=== PATIENT | male | born 1960 | race Caucasian/White ===

== ENCOUNTER 2017-06-05 18:21 | Emergency (ER) | payer MEDICARE, OTHER ==
[~2017-06-05] VITALS: Ht 188 cm; Wt 100.0 kg
[~2017-06-05 18:21] MED LIST: CYCL-1 PO; CYCL-117 PO; CYCL-120 PO; CYCL-394 PO; IBUP-1051 PO; NO HOME MEDS; NORCO10T PO
[2017-06-05] MEDS ORDERED: albuterol 2.5 MG/3 ML nebule NEB ONE (18:30)
[2017-06-05 19:13] LABS: BASOPHILS # (AUTO) 0.1 X10'3 (0-0.2); BASOPHILS % (AUTO) 0.4 % (0-1); EOSINOPHILS # (AUTO) 0.2 X10'3 (0-0.9); HEMATOCRIT 37.8 % (42.0-52.0); HEMOGLOBIN 13.2 g/dl (14.0-17.9); LYMPHOCYTES # (AUTO) 5.2 X10'3 (1.1-4.8); MEAN CORPUSCULAR HEMOGLOBIN 30.1 PG (27.0-31.0); MEAN CORPUSCULAR HGB CONC 35.1 % (33.0-36.5); MEAN PLATELET VOLUME 8.2 FL (7.4-10.4); MONOCYTES # (AUTO) 1.6 X10'3 (0-0.9); MONOCYTES % (AUTO) 8.9 % (2-12); NEUTROPHILS # (AUTO) 10.4 X10'3 (1.8-7.7); NEUTROPHILS % (AUTO) 59.7 % (42-75); PLATELET COUNT 213 X10'3 (140-440); RED BLOOD COUNT 4.39 X10'6 (4.70-6.10); RED CELL DISTRIBUTION WIDTH 13.4 % (11.5-14.5); WHITE BLOOD COUNT 17.5 X10'3 (4.5-11.0)
[2017-06-05 19:19] VITALS: BP 130/90
[2017-06-05 19:39] LABS: ALANINE AMINOTRANSFERASE 89 U/L (12-78); ALBUMIN 3.6 G/DL (3.4-5.0); ALBUMIN/GLOBULIN RATIO 0.7 (1.1-1.5); ALKALINE PHOSPHATASE 53 IU/L (46-116); ANION GAP 11 (8-16); ASPARTATE AMINO TRANSFERASE 63 U/L (10-37); BILIRUBIN,TOTAL 0.9 MG/DL (0.1-1.0); BLOOD UREA NITROGEN 13 MG/DL (7-18); BUN/CREATININE RATIO 13.3 (5.4-32.0); CALCIUM 9.2 MG/DL (8.5-10.1); CHLORIDE 96 MMOL/L (99-107); CREATININE 0.98 MG/DL (0.60-1.10); GLUCOSE 90 MG/DL (70-104); POTASSIUM 3.5 MMOL/L (3.5-5.1); SODIUM 133 MMOL/L (135-145); TOTAL CARBON DIOXIDE 26.3 MMOL/L (24-32); TOTAL PROTEIN 8.7 G/DL (6.4-8.2); eGFR 79 ML/MIN
[2017-06-05] MEDS ORDERED: GUAI600T45 PO (20:52)
[2017-06-05] MEDS ORDERED: ALBU8.5H8 INH (20:52)
[2017-06-05] MEDS ORDERED: AZIT-57 PO (20:52)
[2017-06-06] MEDS ORDERED: GUAI473S11 PO (02:52)
== END 2017-06-05 21:37 | disposition home or self-care (01) ==
LOC: ER 18:22
DX: J20.9 Acute bronchitis, unspecified (principal); B34.9 Viral infection, unspecified; D72.829 Elevated white blood cell count, unspecified; G89.29 Other chronic pain; Z90.49 Acquired absence of other specified parts of digestive tract; Z60.2 Problems related to living alone; Z79.899 Other long term (current) drug therapy
CPT/HCPCS: 36415; 71045; 80053; 83605; 83880; 84484; 85025; 87040; 87502; 87503; 93005; 94640; 94760; 99285

== ENCOUNTER 2018-11-04 20:51 | Emergency (ER) | payer MEDICARE ==
[~2018-11-04] VITALS: Ht 182.9 cm; Wt 103.0 kg
[~2018-11-04 20:51] MED LIST changes: +ALBU8.5H8 INH; +GUAI600T45 PO
--- NOTE | 2018-11-04 23:18 | NUR ---
pt given cup of soda and requested to try and take a few sips at a time. Pt reports it is painful. Able to manage his secretions. Pt has had the fish bone stuck for aprox 2 hrs.
[2018-11-05 00:23] VITALS: BP 140/111
== END 2018-11-05 00:38 | disposition home or self-care (01) ==
LOC: ER 20:53
DX: S00.552A Superficial foreign body of oral cavity, initial encounter (principal); G89.29 Other chronic pain; Z90.49 Acquired absence of other specified parts of digestive tract; Z79.899 Other long term (current) drug therapy; W45.8XXA Other foreign body or object entering through skin, initial encounter; Y93.89 Activity, other specified; Y92.89 Other specified places as the place of occurrence of the external cause; Y99.8 Other external cause status
CPT/HCPCS: 70360; 71045; 99283; 99284

== ENCOUNTER 2019-07-03 19:23 | Emergency (ER) | payer MEDICARE ==
[~2019-07-03] VITALS: Ht 182.9 cm; Wt 104.3 kg
[2019-07-03] MEDS ORDERED: cyclobenzaprine 10mg tablet PO ONE (19:40)
[2019-07-03] MEDS ORDERED: morphine 4 MG/ML inj SYRINge IM ONE (19:40)
[2019-07-03] MEDS ORDERED: ketorolac trometh. 30mg/ml inj. IM ONE (19:40)
[2019-07-03] MEDS ORDERED: acetaminophen 325mg tablet PO ONE (19:40)
[2019-07-03] MEDS ORDERED: HYDR-3965 PO (19:43)
[2019-07-03] MEDS: LIDOcaine 5% patch TP SCH ×2 (20:04→20:38)
[2019-07-03 20:52] VITALS: BP 154/96
== END 2019-07-03 20:45 | disposition home or self-care (01) ==
LOC: ER 19:23
DX: M54.5 Low back pain (principal); G89.29 Other chronic pain; R20.0 Anesthesia of skin; Z90.49 Acquired absence of other specified parts of digestive tract; Z60.2 Problems related to living alone; Z79.899 Other long term (current) drug therapy
CPT/HCPCS: 96372; 99284; J1885; J2270

== ENCOUNTER 2019-12-07 15:51 | Emergency (ER) | payer MEDICARE ==
[~2019-12-07] VITALS: Ht 182.9 cm; Wt 104.5 kg
[2019-12-07 16:01] VITALS: BP 126/89
[2019-12-07] MEDS ORDERED: ketorolac trometh inj. 60 MG/2 ML VIAL IM ONE (16:25)
[2019-12-07] MEDS ORDERED: HYDROcodone/acetaminophen 10/325mg tab PO ONE (16:25)
[2019-12-07] MEDS ORDERED: cyclobenzaprine 10mg tablet PO ONE (16:25)
[2019-12-07] MEDS ORDERED: HYDR-4383 PO (17:06)
[2019-12-07] MEDS ORDERED: NAPR-56 PO (17:06)
== END 2019-12-07 17:23 | disposition home or self-care (01) ==
LOC: ER 15:51
DX: G89.29 Other chronic pain (principal); M54.5 Low back pain; Z87.01 Personal history of pneumonia (recurrent); Z90.49 Acquired absence of other specified parts of digestive tract; Z60.2 Problems related to living alone; Z79.899 Other long term (current) drug therapy
CPT/HCPCS: 72100; 96372; 99284; J1885

== ENCOUNTER 2020-02-25 04:10 | Emergency (ER) | payer MEDICARE ==
[~2020-02-25] VITALS: Ht 182.9 cm; Wt 104.5 kg
[~2020-02-25 04:10] MED LIST changes: +HYDR-4383 PO
[2020-02-25] MEDS ORDERED: proCHLORperazine 10 MG/2 ml inj IM ONE (04:40)
[2020-02-25] MEDS ORDERED: HYDROcodone/acetaminophen 10/325mg tab PO ONE (04:40)
[2020-02-25] MEDS ORDERED: ketorolac trometh inj. 60 MG/2 ML VIAL IM ONE (04:40)
--- NOTE | 2020-02-25 05:34 | NUR ---
PT TO CT
[2020-02-25 06:24] VITALS: BP 111/73
== END 2020-02-25 06:25 | disposition home or self-care (01) ==
LOC: ER 04:11
DX: M54.2 Cervicalgia (principal); R51.9 Headache, unspecified; G89.29 Other chronic pain; F12.90 Cannabis use, unspecified, uncomplicated; Z60.9 Problem related to social environment, unspecified; Z90.49 Acquired absence of other specified parts of digestive tract; Z79.899 Other long term (current) drug therapy
CPT/HCPCS: 70450; 96372; 99284; J0780; J1885

== ENCOUNTER 2020-04-17 16:32 | Emergency (ER) | payer MEDICARE ==
[~2020-04-17] VITALS: Ht 182.9 cm; Wt 104.5 kg
[2020-04-17 16:35] VITALS: BP 141/83
== END 2020-04-17 17:56 | disposition home or self-care (01) ==
LOC: ER 16:33
DX: R20.2 Paresthesia of skin (principal); R53.1 Weakness; G89.29 Other chronic pain; F12.90 Cannabis use, unspecified, uncomplicated; Z87.01 Personal history of pneumonia (recurrent); Z90.49 Acquired absence of other specified parts of digestive tract; Z60.2 Problems related to living alone; Z79.899 Other long term (current) drug therapy
CPT/HCPCS: 93005; 99283

== ENCOUNTER 2020-08-21 06:29 | Emergency (ER) | payer MEDICARE ==
[~2020-08-21] VITALS: Ht 182.9 cm; Wt 106.8 kg
[2020-08-21 06:53] VITALS: BP 130/90
[2020-08-21] MEDS ORDERED: ibuprofen tablet 400 MG TABLET PO ONE (07:15)
[2020-08-21] MEDS ORDERED: acetaminophen 325mg tablet PO ONE (07:15)
[2020-08-21] MEDS ORDERED: ibuprofen 200mg tablet PO ONE (07:20)
== END 2020-08-21 08:30 | disposition home or self-care (01) ==
LOC: ER 06:30
DX: M25.561 Pain in right knee (principal); R42 Dizziness and giddiness; M54.5 Low back pain; R45.1 Restlessness and agitation; F12.10 Cannabis abuse, uncomplicated; Z79.899 Other long term (current) drug therapy; Y04.0XXA Assault by unarmed brawl or fight, initial encounter; Y93.89 Activity, other specified; Y92.89 Other specified places as the place of occurrence of the external cause; Y99.8 Other external cause status
CPT/HCPCS: 70450; 99284

== ENCOUNTER 2022-05-18 09:29 | Emergency (ER) | payer MEDICARE ==
[~2022-05-18] VITALS: Ht 182.9 cm; Wt 104.0 kg
[~2022-05-18 09:29] MED LIST changes: +ALBU8.5H17 INH; -ALBU8.5H8 INH
[2022-05-18 11:46] VITALS: BP 125/87
[2022-05-18] MEDS ORDERED: ondansetron 4mg rapidly disintigrating tab PO ONE (12:40)
[2022-05-18] MEDS ORDERED: morphine 4 MG/ML inj SYRINge IM ONE (12:40)
[2022-05-18] MEDS ORDERED: HYDR-3965 PO (14:15)
[2022-05-18] MEDS ORDERED: METH4TAB3 PO (14:15)
== END 2022-05-18 14:55 | disposition home or self-care (01) ==
LOC: ER 09:30
DX: M54.59 Other low back pain (principal); F12.10 Cannabis abuse, uncomplicated; Z86.19 Personal history of other infectious and parasitic diseases; Z79.899 Other long term (current) drug therapy; Z79.1 Long term (current) use of non-steroidal anti-inflammatories (NSAID)
CPT/HCPCS: 72100; 96372; 99283; J2270

== ENCOUNTER 2023-10-04 15:38 | Emergency (ER) | payer MEDICARE, OTHER ==
[~2023-10-04] VITALS: Ht 182.9 cm; Wt 109.1 kg
[~2023-10-04 15:38] MED LIST changes: +METH4TAB3 PO
[2023-10-04 15:50] VITALS: BP 146/91; PULSE 84; O2SAT 98
[2023-10-04] MEDS: dexamethasone sod phosphate 10mg/ml inj IM STA (17:08)
[2023-10-04 17:09] VITALS: RESP 16
[2023-10-04] MEDS: ketorolac trometh. 30mg/ml inj. IM ONE (17:09)
[2023-10-04] MEDS ORDERED: PRED20TA PO (17:22)
[2023-10-04] MEDS ORDERED: HYDR-3965 PO (17:22)
[2023-10-04 17:47] VITALS: TEMP 97.6
== END 2023-10-04 17:48 | disposition home or self-care (01) ==
LOC: ER 15:38
DX: M54.50 Low back pain, unspecified (principal); G89.29 Other chronic pain; F12.90 Cannabis use, unspecified, uncomplicated; Z79.899 Other long term (current) drug therapy; Z79.1 Long term (current) use of non-steroidal anti-inflammatories (NSAID); Z90.49 Acquired absence of other specified parts of digestive tract
CPT/HCPCS: 96372; 99284; J1100; J1885

== ENCOUNTER 2024-03-12 10:20 | Emergency (ER) | payer MEDICARE, OTHER ==
[~2024-03-12] VITALS: Ht 185.4 cm; Wt 107.4 kg
[2024-03-12 10:27] VITALS: BP 141/88; PULSE 78; TEMP 98.5; O2SAT 94
[2024-03-12] MEDS ORDERED: AMOX-100 PO (12:23)
[2024-03-12 12:34] VITALS: RESP 16
[2024-03-12] MEDS: ketorolac trometh 30MG/ML vial 30 MG/ML VIAL IM ONE (12:34)
== END 2024-03-12 12:44 | disposition home or self-care (01) ==
LOC: ER 10:20
DX: S02.5XXA Fracture of tooth (traumatic), initial encounter for closed fracture (principal); F12.90 Cannabis use, unspecified, uncomplicated; Z90.49 Acquired absence of other specified parts of digestive tract; X58.XXXA Exposure to other specified factors, initial encounter; Y93.89 Activity, other specified; Y92.89 Other specified places as the place of occurrence of the external cause; Y99.8 Other external cause status
CPT/HCPCS: 96372; 99283; J1885

== ENCOUNTER 2024-12-08 10:44 | Outpatient (CLI) | payer OTHER ==
[~2024-12-08] VITALS: Ht 182.9 cm; Wt 113.4 kg
[2024-12-08 12:18] VITALS: PULSE 72; RESP 16; O2SAT 98
[2024-12-08] MEDS: albuterol 2.5 MG/3 ML nebule NEB ONE (12:46)
[2024-12-08 12:57] VITALS: PULSE 73; RESP 18
== END 2024-12-08 23:59 | disposition home or self-care (01) ==
LOC: RT 10:44
PROVIDERS: ATTEND Chiropractor
DX: J40 Bronchitis, not specified as acute or chronic (principal)
CPT/HCPCS: 94060